=== PATIENT | female | born 1980 | race Hispanic/Latino ===

== ENCOUNTER 2021-01-03 14:41 | Emergency (ER) | payer SELFPAY ==
[~2021-01-03] VITALS: Ht 167.6 cm; Wt 71.2 kg
[2021-01-03] MEDS ORDERED: ALBUTEROL SULFATE HFA 8GM INHALATION AEROSOL INH PRN (15:15)
[2021-01-03 15:40] LABS: BASOPHILS % 0.3 % (0.0-1.0); EOSINOPHILS % 0.3 % (0.0-6.0); HEMATOCRIT 32.2 % (34.2-44.1); HEMOGLOBIN 9.7 g/dL (12.0-16.0); LYMPHOCYTES # (AUTO) 1.1 (1.0-3.2); MEAN CORPUSCULAR HEMOGLOBIN 23.7 pg (28-32); MEAN CORPUSCULAR HGB CONC 30.1 g/dL (31-35); MEAN CORPUSCULAR VOLUME 78.5 fL (81-99); MONOCYTES # (AUTO) 0.2 (0.2-0.8); NEUTROPHILS # (AUTO) 1.7 (2.1-6.9); NEUTROPHILS % 56.1 % (38.7-80.0); PLATELET COUNT 141 x10e3/uL (140-360); RED CELL DISTRIBUTION WIDTH 16.1 % (11.7-14.4)
[2021-01-03 16:19] LABS: ALBUMIN 3.9 g/dL (3.5-5.0); ALBUMIN/GLOBULIN RATIO 1.3 (0.8-2.0); ANION GAP 12.7 mmol/L (8-16); CALCIUM 7.9 mg/dL (8.4-10.2); CREATININE, SERUM 0.64 mg/dL (0.57-1.11); POTASSIUM 3.7 mmol/L (3.5-5.1)
[2021-01-03] MEDS ORDERED: SODIUM CHLORIDE 0.9% 50ML 50 ML ONE (17:16)
[2021-01-03] MEDS ORDERED: IOPAMIDOL 370 MG/ML 200 ML INFUS..BTL INJ ONE (17:16)
[2021-01-03] MEDS ORDERED: ZITHROMAX250 MG PO (18:34)
[2021-01-03] MEDS ORDERED: PROVENTIL HFA6.7 GM INH (18:35)
[2021-01-03 19:36] LABS: BAND NEUTROPHILS % (MANUAL) 1 %; EOSINOPHILS % (MANUAL) 3 % (0-7); LYMPHOCYTES % (MANUAL) 31 % (19-48); MONOCYTES % (MANUAL) 5 % (3.4-9.0); NEUTROPHILS % (MANUAL) 59 % (40-74)
[2021-01-03 19:38] LABS: PLATELET ESTIMATE ADEQUATE
== END 2021-01-03 18:40 | disposition home or self-care (01) ==
LOC: ER 16:45
DX: R50.9 Fever, unspecified (principal); R06.02 Shortness of breath; R05 Cough; U07.1 COVID-19; J12.82 Pneumonia due to coronavirus disease 2019
CPT/HCPCS: 36415; 71045; 71260; 80053; 81025; 85025; 85379; 93005; 99284; Q9967; U0002

== ENCOUNTER 2021-01-05 10:38 | Emergency (ER) | payer SELFPAY ==
[~2021-01-05] VITALS: Ht 167.6 cm; Wt 71.2 kg
[~2021-01-05 10:38] MED LIST: PROVENTIL HFA6.7 GM INH; ZITHROMAX250 MG PO
[2021-01-05] MEDS ORDERED: SODIUM CHLORIDE 0.9% 100 ML ONE (11:06)
== END 2021-01-05 11:42 | disposition home or self-care (01) ==
LOC: ER 10:52
DX: R05 Cough (principal); U07.1 COVID-19
CPT/HCPCS: 99282; J7050